=== PATIENT | male | born 1960 ===

== ENCOUNTER 2016-03-31 14:16 | Emergency (ER) | payer BC, OTHER ==
[2016-03-31 14:40] VITALS: BP 139/36
[2016-03-31] MEDS ORDERED: HYDROcodone/ACETAMIN 5-325 MG* 1 TAB PO ONE (14:44)
[2016-03-31] MEDS ORDERED: Gelfoam Sponge SIZE 100* SPONGE TOPICAL ONE (14:53)
--- NOTE | 2016-03-31 14:54 | UC ---
Hand/Wrist HPI - HPI Summary HPI Summary: cut left 5th finger with saw. Can't stop the bleeding. Refuses a tetanus shot. - History Of Current Complaint Chief Complaint: UCLaceration Stated Complaint: LEFT HAND PINKY LAC Time Seen by Provider: 03/31/16 14:41 Hx Obtained From: Patient Onset/Duration: Sudden Onset, Lasting Hours - 2 Severity Initially: Moderate Severity Currently: Mild Character Of Pain: Sharp, Aching Aggravating Factor(s): Movement Alleviating: Compression Associated Signs And Symptoms: Positive: Negative - Risk Factors Compartment Syndrome Risk Factors: Pain - Allergies/Home Medications Allergies/Adverse Reactions: Allergies Allergy/AdvReac Type Severity Reaction Status Date / Time No Known Allergies Allergy Verified 03/31/16 14:41 PMH/Surg Hx/FS Hx/Imm Hx Previously Healthy: Yes - Surgical History Surgical History: Yes Surgery Procedure, Year, and Place: right inguinal hernia - Family History Known Family History: Positive: Hypertension - Social History Occupation: Employed Full-time Lives: With Family Alcohol Use: Rare Substance Use Type: None Smoking Status (MU): Heavy Every Day Tobacco Smoker Type: Cigarettes Amount Used/How Often: 1 ppd - Immunization History Most Recent Tetanus Shot: Unknown Review of Systems Constitutional: Negative Skin: Other - lac left 5th finger Eyes: Negative ENT: Negative Respiratory: Negative Cardiovascular: Negative Gastrointestinal: Negative Genitourinary: Negative Motor: Negative Neurovascular: Negative Musculoskeletal: Negative Neurological: Negative Psychological: Negative All Other Systems Reviewed And Are Negative: Yes Physical Exam Triage Information Reviewed: Yes Appearance: Well-Appearing, No Pain Distress, Well-Nourished Vital Signs: Initial Vital Signs Temp 99.3 F 03/31/16 14:27 Pulse 113 03/31/16 14:27 Resp 20 03/31/16 14:27 BP 139/36 03/31/16 14:27 Pulse Ox 97 03/31/16 14:27 Vital Signs Reviewed: Yes Eye Exam: Normal Neck exam: Normal Respiratory Exam: Normal Cardiovascular Exam: Normal Musculoskeletal Exam: Normal Neurological Exam: Normal Psychological Exam: Normal Skin Exam: Other - avulsion injury lateral surface distal 5th finger. Length 1.4cm, width 0.5cm. Actively oozing. Good ROM. No other injury. Hand/Wrist Course/Dx - Differential Dx/Diagnosis Provider Diagnoses: skin avulsion left 5th finger Discharge - Discharge Plan Condition: Stable Disposition: HOME Prescriptions: HYDROcodone/ACETAMIN 5-325 MG* [[place] 5-325 TAB*] 1 - 2 tab PO Q6H PRN #14 tab MDD 6 tab PRN Reason: Pain Patient Education Materials: Skin Avulsion (ED) Referrals: No Primary Care Phys,NOPCP [Primary Care Provider] - Additional Instructions: Leave our bandage on until evening. Then remove the bandage, wash the wound with soap and water, and rebandage it. The [place] will form an artificial scab and will eventually fall/peel off on its own. Don't pick it off for the first week.
[2016-03-31] MEDS ORDERED: Gelfoam 12-7 ADSORBABL SPONGE* 1 EA SPONGE ONE (14:58)
== END 2016-03-31 15:08 | disposition home or self-care (01) ==
LOC: UCCORT 14:16
DX: S61.217A Laceration without foreign body of left little finger without damage to nail, initial encounter (principal); W31.2XXA Contact with powered woodworking and forming machines, initial encounter; Y93.9 Activity, unspecified; Y92.9 Unspecified place or not applicable; F17.210 Nicotine dependence, cigarettes, uncomplicated
CPT/HCPCS: 99203; A9270-GY; G0463